=== PATIENT | female | born 1995 | race Caucasian/White ===

== ENCOUNTER 2018-12-03 15:00 | Emergency (ER) | payer BC ==
[2018-12-03 15:06] VITALS: BP 127/76
--- NOTE | 2018-12-03 16:07 | ER Document Report ---
HPI - HPI Patient complains to provider of: ear pain and earring removal Time Seen by Provider: 12/03/18 15:37 Pain Level: Denies Context: 23-year-old healthy female presents the emergency department with right tragus pain after a stent placed in it in September. She said that it has never healed properly and she tried to remove it for the last couple weeks but is been unable to because she has had a fleshy growth blocking it. She says that the pain is gotten worse over the last few days. She denies fevers or chills, denies hearing loss, denies redness around her ear, denies neck stiffness or neck pain, no other symptoms. - REPRODUCTIVE Reproductive: DENIES: : Past Medical History - Social History Smoking Status: Never Smoker Family History: None Vertical Provider Document - CONSTITUTIONAL Notes: PHYSICAL EXAMINATION: Reviewed vital signs and charting by RN GENERAL: Alert, interacts well. No acute distress. HEAD: Normocephalic, atraumatic. EYES: Pupils equal and round. Extraocular movements intact. ENT: Oral mucosa moist, tongue midline. Right tragus with a stud and it and on the backside there is a bolus growth that appears red and infected, there is some mild purulent discharge coming from it and a small amount of bleeding NECK: Full range of motion. Trachea midline. EXTREMITIES: Moves all 4 extremities spontaneously. No edema, No cyanosis. PSYCH: Normal affect, normal mood. SKIN: Warm, dry, normal turgor. No rashes or lesions noted. - INFECTION CONTROL COUNTRY TRAVELED TO/FROM: [facility] Course - Re-evaluation Re-evalutation: 12/03/18 16:06 Ear ring removed with assistance of nursing using straight Kellys and curved Kellys. Patient tolerated procedure well. All parts of hearing were visualized. Otoscope with visualization of the ear showed a canal, TM intact, landmarks well visualized and pearly stone, no evidence of inflammation. Patient tolerated procedure well and is ready for discharge. I will place her on Ciprodex drops twice daily. - Vital Signs Vital signs: Temp Pulse Resp BP Pulse Ox 98.6 F 88 18 127/76 H 99 12/03/18 15:05 12/03/18 15:05 12/03/18 15:05 12/03/18 15:05 12/03/18 15:05 Discharge - Discharge Clinical Impression: Cellulitis of tragus Qualifiers: Laterality: right Qualified Code(s): H60.11 - Cellulitis of right external ear Condition: Good Disposition: HOME, SELF-CARE Additional Instructions: You were seen for ear ring removal. There is an infection there and I have placed you on some antibiotic drops. Please place 3 drops in your ear 2 times per day for 7 days. Ensure that you do good wound care and pain the water. Also you can gently clean the external area only with Q-tips but do not stick it in your ear to clean them. Please return to the emergency department if you develop worsening redness and inflammation of your ear as this may require oral antibiotics, or you have any other concerning symptoms. Please follow-up with your primary doctor in the next several days.
[2018-12-03] MEDS ORDERED: CIPROFLOXACIN-HC OTIC SUSP 10 ML AD ONE (16:08)
== END 2018-12-03 16:32 | disposition home or self-care (01) ==
LOC: ER 15:00
DX: H60.11 Cellulitis of right external ear (principal); H57.11 Ocular pain, right eye
CPT/HCPCS: 99282; J3490